=== PATIENT | female | born 1955 | race Caucasian/White ===

== ENCOUNTER 2020-05-05 16:22 | Emergency (ER) | payer MEDICAID, SELFPAY ==
--- NOTE | ~2020-05-05 | XR_ITS ---
XR wrist LT w scaphoid DATE: 05/05/2020 16:49 INDICATION: Fall. Left wrist and hand pain and swelling TECHNIQUE: 5 views including scaphoid COMPARISON: None FINDINGS: Diffuse osteopenia. No fracture or dislocation, periosteal reaction or bone destruction, erosive change or chondrocalcino sis. Joint spaces are preserved. IMPRESSION: Osteopenia; otherwise negative Reviewed, dictated and finalized at location A. [employer] SUPER[employer]
[2020-05-05 16:22] VITALS: BP 92/52; PULSE 66; RESP 16; TEMP 36.9; O2SAT 99
--- NOTE | 2020-05-05 16:41 | ED.GENADULT ---
HPI - General Adult General Chief complaint: Fall Stated complaint: AMB Source: patient and EMS Mode of arrival: EMS Limitations: dementia History of Present Illness HPI narrative: Melisa is a 65F with a PMH of dementia and MDD brought to the ED by EMS. She escaped from her assisted. She was found but apparently had a ground level fall. She now has several abrasions as well as a contusion on her left wrist with TTP. She is denying anything for pain. She has no other concerns. No HARRY, vision changes, neck pain or weakness. Related Data Home Medications Medication Instructions Recorded Confirmed clonidine HCl 0.1 mg PO BID 05/05/20 05/05/20 Allergies Allergy/AdvReac Type Severity Reaction Status Date / Time No Known Allergies Allergy Verified 05/05/20 16:36 Review of Systems Constitutional: Constitutional: Reports no additional constitutional complaints Eyes: Eyes: Reports no additional eye complaints ENT: Reports system reviewed and no additional complaints, except as documented Cardiovascular: Cardiovascular: Reports no additional cardiovascular complaints Respiratory: Respiratory: Reports no additional respiratory complaints Gastrointestinal: Gastrointestinal: Reports no additional gastrointestinal complaints Genitourinary: Genitourinary: Reports no additional female genitourinary complaints Musculoskeletal: Musculoskeletal: Reports as per HPI Integumentary/Breasts: Skin/Breast: Reports as per HPI Neurologic: Reports system reviewed and no additional complaints, except as documented Psychiatric: Psychiatric: Reports no additional psychiatric complaints Endocrine: Endocrine: Reports no additional endocrine complaints Hematologic/Lymphatic: Hematologic/Lymphatic: Reports no additional hematologic/lymphatic complaints Allergic/Immunologic: Allergic/Immunologic: Reports no additional allergic/immunologic complaints Exam Const: General: no acute distress and alert Orientation/consciousness: patient oriented x3 Limitations: No altered mental status HENMT: Other: A few abriasons on the left side of her face with mild swelling. No TTP. No crepitus. Eyes: Conjunctivae: conjunctivae normal Pupils: Equal, round and reactive pupils present Neck: Neck: normal visual inspection Other: No midline tenderness. Full active ROM without pain Chest: Chest palpation & inspection: normal inspection of the chest Resp: Effort & Inspection: normal respiratory effort Cardio: Rate: regular rate GI: GI Palp: Yes Soft to palpation, No Tenderness to palpation present (GI) and No Guarding due to palpation present (GI) : General: Yes no CVA tenderness Back/Spine/Pelvis: Other: no midline tenderness Skin: General skin exam: normal color Rashes: no rashes Other: Abraisons on the left hand, wrist and left cheek Neuro: General: oriented to person, oriented to place, oriented to time, patient oriented x3 and moves all extremities Speech: normal speech Motor exam (neuro): 5/5 motor strength present throughout Sensory Exam: normal sensation Extrem: General: normal to inspection Psych: Mental Status: mental status grossly normal Course Course Emergency Course: Melisa was evaluated. She refused meds for pain. Radiographs were ordered. XR wrist LT w scaphoid DATE: 05/05/2020 16:49 INDICATION: Fall. Left wrist and hand pain and swelling TECHNIQUE: 5 views including scaphoid COMPARISON: None FINDINGS: Diffuse osteopenia. No fracture or dislocation, periosteal reaction or bone destruction, erosive change or chondrocalcinosis. Joint spaces are preserved. IMPRESSION: Osteopenia; otherwise negative Radiographs negative for fracture. Wounds were cleaned and she was discharged back to the facility. Vital Signs Vital signs: Vital Signs Temperature 98.5 F 05/05/20 16:22 Pulse Rate 66 05/05/20 16:22 Respiratory Rate 16 05/05/20 16:22 Blood Pressure 92/52 L 05/05/20 16:22 Pulse Oximetry 99 12/0
--- NOTE | 2020-05-05 17:56 | PC.NURSE ---
1730 WOUND CLEANED AND DRESSED. ROQUE WRAP PLACED ON LEFT WRIST
[2020-05-05 17:57] VITALS: BP 174/54; PULSE 66; RESP 16; TEMP 36.9; O2SAT 96
== END 2020-05-05 17:58 | disposition home or self-care (01) ==
PROVIDERS: Emergency Provider Family Medicine
DX: S60.212A Contusion of left wrist, initial encounter (principal); W18.30XA Fall on same level, unspecified, initial encounter
CPT/HCPCS: 73110; 99282; 99283

== ENCOUNTER 2020-05-20 16:26 | Emergency (ER) | payer MEDICAID, SELFPAY ==
--- NOTE | ~2020-05-20 | CT_ITS ---
EXAMINATION: CT brain wo con DATE: 05/20/2020 17:45 INDICATION: Transient alteration of awareness TECHNIQUE: Computed tomography (CT) of the head was performed without intravenous contrast. The dose- length product was 529.67 mGy-cm. The mA was adjusted according to patient size. Iterative reconstruc tion technique was employed. COMPARISON: None FINDINGS: There is a geographic hypodensity of the left parietal lobe with effacement of the sulci co nsistent with acute infarction. Generalized atrophy. There is intracranial atherosclerosis. No ventri culomegaly or midline shift. Study limited by motion artifact. No evidence for acute intracranial hem orrhage. There is mucosal thickening of the ethmoid, right maxillary and sphenoid sinuses. Mastoids a re pneumatized. IMPRESSION: 1. Acute left parietal infarction. No associated hemorrhage. 2: Chronic age-related findings. Dr. Andrea Maldonado discussed with Dr. Roberto Georges MD at 05/20/2020 17:52 [employer]PERVIS[employer]. Reviewed, dictated and finalized at location A. [employer] IMPRESSION: 1. Acute left parietal infarction. No associated hemorrhage. 2: Chronic age-related findings. Dr. Andrea Maldonado discussed with Dr. Roberto Georges MD at 05/20/2020 17:52 [employer] .
--- NOTE | ~2020-05-20 | XR_ITS ---
EXAMINATION: XR chest 1V portable 05/20/2020 17:44 INDICATION: Transient alteration of awareness. Covid Positive. PROCEDURE: AP portable chest COMPARISON: No prior studies for comparison. FINDINGS: The lungs are clear. The cardiomediastinal silhouette is within normal limits. There are no pleural effusions. There is no pneumothorax suspected. IMPRESSION: 1: NO ACUTE CARDIOPULMONARY DISEASE. Reviewed, dictated and finalized at location A. PLOYMENT INSURANCE DIRECTOR
[2020-05-20 16:38] VITALS: BP 219/91; PULSE 74; RESP 20; TEMP 36.4; O2SAT 96
--- NOTE | 2020-05-20 16:38 | ED.GENADULT ---
HPI - General Adult General Chief complaint: Unspecified Stated complaint: AMB Time Seen by Provider: 05/20/20 16:38 Source: patient Mode of arrival: EMS History of Present Illness HPI narrative: 65-year-old woman brought to the emergency department by EMS after they were called because she was eloping from her skilled nursing. This apparently is not a new problem having had a recent injury evaluated in the emergency department (05/05/2020 Related Data Home Medications Medication Instructions Recorded Confirmed clonidine HCl 0.1 mg PO BID 05/05/20 05/05/20 acetaminophen 650 mg PO Q4H PRN 05/20/20 05/20/20 guaifenesin [Robafen] 200 mg PO Q4H PRN 05/20/20 05/20/20 ibuprofen 400 mg PO TID PRN 05/20/20 05/20/20 Allergies Allergy/AdvReac Type Severity Reaction Status Date / Time No Known Allergies Allergy Verified 05/05/20 16:36 [facility] Social History Social History Gender identity (if verbalized by the patient): Female Discharge Plan Discharge Prescriptions: No Action clonidine HCl 0.1 mg Tablet 0.1 mg PO BID RF: 0 acetaminophen 325 mg Tablet 650 mg PO Q4H PRN (Reason: Pain) RF: 0 guaifenesin [Robafen] 100 mg/5 mL Liquid 200 mg PO Q4H PRN (Reason: Cough) RF: 0 ibuprofen 400 mg Tablet 400 mg PO TID PRN (Reason: Pain) RF: 0
[2020-05-20 16:47] VITALS: BP 219/91; PULSE 74; RESP 20; TEMP 36.4; O2SAT 96
--- NOTE | 2020-05-20 16:49 | PC.NURSE ---
Dr. Georges speaking with Anabela from [facility] about pts baseline status.
--- NOTE | 2020-05-20 16:50 | ECG_ITS ---
Measurements Intervals [place] Rate: 80 P: 54 [place]: 141 QRS: 66 QRSD: 81 T: 60 QT: 374 QTc: 433 Interpretive Statements SINUS RHYTHM BASELINE ARTIFACT- I, II, III, AVR, AVL, AVF, V1-V6 BORDERLINE ECG Electronically Signed On 05-21-2020 11:44:51 [employer] by Fermin Yun D.O.
--- NOTE | 2020-05-20 16:50 | ED.AMS ---
HPI - Altered Mental Status General Chief Complaint: Altered Mental Status Stated Complaint: AMB Time Seen by Provider: 05/20/20 16:38 Source: patient Mode of arrival: EMS Limitations: altered mental status History of Present Illness HPI narrative: 65-year-old woman with history of MDD, bipolar disorder and PTSD brought to the emergency department by EMS. Caregiver/ director of [facility] states that for the last month she has been absconding from the facility and they are unable to restrain her or lock doors. She states that the patient seems more confused today and managed to remove a window in order to escape. Yesterday she absconded from the facility for 2 hours, instigating a police and fire services search for her whereabouts. She was seen here on 05/05 for an injury that occurred while escaping and has several healing wounds on her left hand. She was diagnosed with Covid on 05/05/20. MD complaint: altered mental status Onset (ago): week(s) Timing confirmed by: caregiver Severity: severe Consistency of symptoms: waxing and waning Related Data Home Medications Medication Instructions Recorded Confirmed clonidine HCl 0.1 mg PO BID 05/05/20 05/20/20 acetaminophen 650 mg PO Q4H PRN 05/20/20 05/20/20 guaifenesin [Robafen] 200 mg PO Q4H PRN 05/20/20 05/20/20 ibuprofen 400 mg PO TID PRN 05/20/20 05/20/20 Allergies Allergy/AdvReac Type Severity Reaction Status Date / Time No Known Allergies Allergy Verified 05/05/20 16:36 Review of Systems Review of Systems: ROS unobtainable: Yes unobtainable due to mental status PMFSH Past Medical History Medical History (Updated 05/20/20 @ 20:08 by Roberto Georges MD) Bipolar 1 disorder Carotid stenosis CVA (cerebral vascular accident) Family states she has had 3 prior strokes. Hypertension Personality disorder PTSD (post-traumatic stress disorder) Social History Social History (Updated 05/20/20 @ 17:11 by Roberto Georges MD) Living arrangements: [facility] Gender identity (if verbalized by the patient): Female Exam Const: General: no acute distress and alert Limitations: behavioral limitations (follows direction poorly) Other: Patient answers all questions with either Yes , No , or I [don't] think so. Wearing several layers of upper body clothing and mismatched socks. HENMT: Head: normal to inspection Ears: external ears normal, TM's normal bilaterally and EAC's normal General nose exam: Normal nares present Face and sinus: normal facial exam Mouth: Yes moist mucous membranes Throat: posterior oropharynx normal Eyes: Conjunctivae: conjunctivae normal Pupils: Equal, round and reactive pupils present EOM: EOMs intact bilaterally Neck: Neck: normal visual inspection and no lymphadenopathy Resp: Effort & Inspection: normal respiratory effort and not labored Auscultation: no rales, no rhonchi and no wheezes Cardio: Rate: regular rate Rhythm: regular rhythm Heart sounds: no murmurs GI: GI Palp: Yes Soft to palpation, No Tenderness to palpation present (GI), No Guarding due to palpation present (GI) and No Palpable mass present Skin: General skin exam: normal color, no jaundice and no pallor Rashes: no rashes Neuro: General: moves all extremities and CN's II-XI intact bilaterally Speech: normal speech, Expressive aphasia present and Receptive aphasia present Motor exam (neuro): 5/5 motor strength present throughout, Pronator motor function not present, No tremor noted and Normal motor muscle tone present throughout Extrem: General: normal to inspection and no clubbing, cyanosis or edema Other: Cool, pale extremities. Psych: Appearance: grossly normal and well kempt Affect: Anxious affect present Course Course Emergency Course: Discussed patient's care with Dr. Sampson, neurology at [facility]. She accepted the patient for further care. Vital Signs Vital signs: Vital Signs Temperature 36.4 C 05/20/20 16:38 Pulse Ra
[2020-05-20 17:30] LABS: Basophils Absolute Auto 0.02 K/mm3 (0.00-0.10); Basophils Percent Auto 0.2 % (0.0-1.0); Eosinophils Absolute Auto 0.02 K/mm3 (0.02-0.50); Eosinophils Percent Auto 0.2 % (1.0-6.0); Hematocrit 35.5 % (35.0-49.0); Hemoglobin 11.8 g/dL (12.0-15.0); Immature Granulocyte Absolute 0.03 K/mm3 (0.00-0.00); Immature Granulocyte Percent A 0.4 % (0.0-0.0); Lymphocytes Absolute Auto 1.68 K/mm3 (1.10-4.50); Lymphocytes Percent Auto 20.4 % (18.0-42.0); Mean Corpuscular HGB Conc 33.2 g/dL (32.0-36.0); Mean Corpuscular Hemoglobin 29.9 pg (27.0-31.0); Mean Corpuscular Volume 90.1 fL (78.0-102.0); Mean Platelet Volume 11.7 fl (9.2-11.8); Monocytes Absolute Auto 0.82 K/mm3 (0.10-0.90); Neutrophils Absolute Auto 5.7 K/mm3 (1.7-7.2); Neutrophils Percent Auto 68.8 % (50.0-70.0); Platelet Count Result 257 K/mm3 (150-420); Red Blood Count 3.94 M/mm3 (4.20-5.40); Red Cell Distribution Width 12.1 % (11.6-14.4); White Blood Count 8.2 K/mm3 (4.8-10.8)
[2020-05-20 17:45] LABS: Partial Thromboplastin Time 22.8 SEC (23.90-30.70); Prothrombin Time 11.4 Seconds (9.50-12.10)
[2020-05-20] MEDS: THIAMINE HCL INJ 100 MG, FOLIC ACID INJ 1 MG, MULTIVITAMINS-12 INJ VIAL 1 5 ML, MULTIVI... 500 MG IV CONT (17:46)
[2020-05-20 17:51] LABS: Base Excess ABG -1.3 mmol/L (0-2); HCO3 ABG 20.7 mmol/L (23-29); Oxygen Content ABG 16.8 %vol (16.0-22.0); Oxygen Saturation ABG 96.6 % (95-97); Oxyhemoglobin 96.2 % (94-100); PCO2 ABG 27.2 mmHg (35-45); PO2 ABG 80.8 mmHg (80-90); Total Hemoglobin 12.4 g/dL
[2020-05-20 17:53] LABS: Device ROOM AIR; Modified Allen's Test Pass; Site Drawn LEFT RADIAL
[2020-05-20 17:57] LABS: Glucose Point of Care 90 (65-105)
[2020-05-20] MEDS: cloNIDine HCL 0.1 MG TABLET PO (17:59)
[2020-05-20 18:08] LABS: Lactic Acid Reflex 1.2 mmol/L (0.4-2.0)
[2020-05-20 18:11] LABS: Alanine Aminotransferase 14 U/L (14-59); Albumin Level 3.6 g/dL (3.4-5.0); Alkaline Phosphatase 74 U/L (46-116); Ammonia < 10 umol/L (11-32); Anion Gap 9 mmol/L (8-16); Aspartate Amino Transferase 13 U/L (15-37); Bilirubin,Total 0.5 mg/dL (0.00-1.00); Blood Urea Nitrogen 16 mg/dL (7-18); Calcium 9.3 mg/dL (8.5-10.1); Carbon Dioxide 24 mmol/L (21-32); Chloride 102 mmol/L (98-108); Creatine Kinase 40 U/L (26-192); Estimated Glomerular Filt Rate 52; Ethanol < 3 mg/dL (0-6); Glucose 92 mg/dL (70-99); Osmolality Calculated 281 mOsm/kg (285-295); Potassium 4.2 mmol/L (3.5-5.1); Salicylate 2.3 mg/dL (2.8-20.0); Sodium 135 mmol/L (136-145); Thyroid Stimulating Hormone 1.33 uIU/mL (0.36-3.74); Total Protein 7.9 g/dL (6.4-8.2); Troponin I 11.4 ng/L (0.00-60.4)
[2020-05-20 18:12] LABS: Acetaminophen < 2 ug/mL (10-30)
[2020-05-20 18:33] LABS: Add Urine Microscopic? YES; Appearance Urine Clear (Clear); Bacteria Urine Trace /hpf; Bilirubin Urine 2+ (Negative); Blood Urine Negative (Negative); Color Urine Yellow (Yellow); Glucose Urine UA Negative (Negative); Ketones Urine 3+ (Negative); Leukocyte Esterase Ur Negative LEU/UL (Negative); Mucus Urine Few /lpf; Nitrate Urine Negative (Negative); Protein Urine Trace (Negative); RBC Urine 0-2 /hpf (0-2); Specific Grav Ur >= 1.030 (1.010-1.020); Squamous Epithelial Cell Urine Few /hpf (Few); WBC Urine 0-3 /hpf (0-3); pH Urine 5.5 (5.0-8.0)
[2020-05-20 18:34] LABS: Amphetamine Screen Urine Negative (Negative); Barbiturate Screen Urine Negative (Negative); Benzodiazepines Screen Urine Negative (Negative); Cannabinoid Screen Urine Negative (Negative); Cocaine Screen Urine Negative (Negative); Methadone Screen Urine Negative (Negative); Opiate Screen Urine Negative (Negative); Phencyclidine Screen Urine Negative (Negative)
--- NOTE | 2020-05-20 18:37 | PC.NURSE ---
1835 [facility] scale of [address] Georges
--- NOTE | 2020-05-20 18:38 | PC.NURSE ---
1838 [place] transfer call for request of a bed
--- NOTE | 2020-05-20 19:15 | PC.NURSE ---
Dr. Georges speaking with Dr. Sampson at [facility].
[2020-05-20 19:30] VITALS: BP 163/64
[2020-05-20 20:46] VITALS: BP 175/73; PULSE 67; RESP 20; O2SAT 95
== END 2020-05-20 20:47 | disposition short-term general hospital (02) ==
PROVIDERS: Emergency Provider Emergency Medicine
DX: I63.9 Cerebral infarction, unspecified (principal); I10 Essential (primary) hypertension
CPT/HCPCS: 36415; 36600; 70450; 71045; 80053; 80307; 81001; 82140; 82550; 82805; 82948; 83605; 84443; 84484; 85025; 85610; 85730; 87040; 93005; 96365; 96366; 99285; A9270; J3411; J3475; J7120